=== PATIENT | male | born 1975 | race Caucasian/White ===

== ENCOUNTER 2017-04-07 22:21 | Emergency (ER) | payer OTHER ==
[~2017-04-07] VITALS: Ht 182.9 cm; Wt 95.0 kg
[2017-04-07] MEDS ORDERED: HALOPERIDOL LACTATE 5 MG/ML AMP ONE (22:29)
[2017-04-07 22:35] VITALS: BP 172/99; PULSE 121; RESP 18; TEMP 97.4; O2SAT 99
[2017-04-07] MEDS ORDERED: LORazepam 2 MG/ML VIAL ONE (22:39)
[2017-04-07] MEDS ORDERED: HALOPERIDOL LACTATE 5 MG/ML AMP IM ONE (22:45)
[2017-04-07] MEDS ORDERED: LORazepam 2 MG/ML VIAL IM ONE (22:45)
--- NOTE | 2017-04-07 23:11 | PD ---
HPI Chief Complaint: Alcohol/Drug Intoxication Time Seen by Provider: 22:38 Travel History International Travel<30 days: No Contact w/Intl Traveler<30days: No Traveled to known affect area: No History of Present Illness HPI So 41-year-old man who presents to the emergency department brought in by law enforcement for being intoxicated. The reportedly initially took him to the retirement with the retirement wouldn't take him because he was "too drunk". Patient at this point is to screaming obscenities stating ischemic kill everybody, stating that he hates law enforcement officer, and trying to spit on people. History Past Medical History Narrative Medical Unknown Medical History: Unable to Obtain Tetanus Vaccination: Unknown Past Surgical History Surgical History: Unable to Obtain Social History Alcohol Use: Yes Tobacco Use: No Allergies-Medications (Allergen,Severity, Reaction): Coded Allergies: UNOBTAINABLE (Unverified , 04/07/17) pt intoxicated refusing to answer questions Review of Systems Except as stated in HPI: all other systems reviewed are Neg Physical Exam Narrative GENERAL: A 41-year-old man, in handcuffs, yelling obscenities and spitting on people. SKIN: Focused skin assessment warm/dry. HEAD: Normocephalic. Lungs any obvious evidence of trauma.. EYES: Pupils equal and round. No scleral icterus. No injection or drainage. ENT: No nasal bleeding or discharge. Mucous membranes pink and moist. NECK: Moves neck freely. CARDIOVASCULAR: Regular rate and rhythm. No murmur appreciated. RESPIRATORY: No accessory muscle use. Clear to auscultation. Breath sounds equal bilaterally. GASTROINTESTINAL: Abdomen soft, non-tender, nondistended. Hepatic and splenic margins not palpable. MUSCULOSKELETAL: No obvious deformities. No edema. NEUROLOGICAL: Awake and alert. No obvious cranial nerve deficits. Motor grossly within normal limits. Normal speech. PSYCHIATRIC: Agitated, non-directable. Data Data Last Documented VS Vital Signs Date Time Temp Pulse Resp B/P Pulse Ox O2 Delivery O2 Flow Rate FiO2 04/07/17 22:35 97.4 121 18 172/99 99 Orders Haloperidol Inj (Haldol Inj) (04/07/17 22:29) Haloperidol Inj (Haldol Inj) (04/07/17 22:45) Lorazepam Inj (Ativan Inj) (04/07/17 22:45) Lorazepam Inj (Ativan Inj) (04/07/17 22:39) Restraints Violent (04/07/17 22:55) MDM Medical Decision Making Medical Screen Exam Complete: Yes Emergency Medical Condition: Yes Differential Diagnosis Intoxication, agitated delirium, occult injury, other Narrative Course Medical decision making Is a 41-year-old man presents emergent department aggressive intoxicated. He was restrained and sedated without issue. He'll sleep it off we'll reassess him. There is no evidence of trauma. Possibly some other coingestions. Diagnosis Primary Impression: Alcohol intoxication Referrals: [facility] Additional Instructions: Do not drink alcohol to excess. Do not take illicit drugs. Med/Other Pt SpecificInfo: No Change to Meds Disposition: 01 DISCHARGE HOME Condition: Stable Edgard Oconnell MD Apr 07, 2017 23:11
[2017-04-08 03:30] VITALS: BP 103/65; PULSE 96; RESP 16; O2SAT 97
[2017-04-08 08:55] VITALS: BP 110/68
== END 2017-04-08 08:58 | disposition home or self-care (01) ==
LOC: NEPE 22:21
DX: F10.129 Alcohol abuse with intoxication, unspecified (principal)
CPT/HCPCS: 96372; 99285; J1630; J2060

== ENCOUNTER 2017-04-13 15:43 | Emergency (ER) | payer OTHER ==
[~2017-04-13] VITALS: Ht 185.4 cm; Wt 80.0 kg
[2017-04-13] MEDS ORDERED: SODIUM CHLOR 0.9% 1000 ML INJ 1,000 ML IV ONE (16:00)
[2017-04-13] MEDS ORDERED: HALOPERIDOL LACTATE 5 MG/ML AMP IM ONE (16:00)
[2017-04-13] MEDS ORDERED: LORazepam 2 MG/ML VIAL IM ONE (16:00)
[2017-04-13 16:11] VITALS: BP 114/67; PULSE 121; RESP 24; TEMP 98.4; O2SAT 97
--- NOTE | 2017-04-13 16:19 | PD ---
HPI Chief Complaint: Psychiatric Symptoms Time Seen by Provider: 15:53 Travel History International Travel<30 days: No Contact w/Intl Traveler<30days: No Traveled to known affect area: No History of Present Illness HPI 41-year-old male presents emergency department under Bishop act. Per police patient was aggressive, agitated. Stating "I'm Tu Arreola", "I'm God". Patient admits to feeling depressed, suicidal. States "I wish I could just take a gun and blow my head off". He was found with obvious second-degree sunburns with blisters. Patient is aggressive with police, stating. He was placed in restraints prior to arrival. Patient denies any medical complaints, stating repetitively that he wants to end his life. [facility] Past Medical History Medical History: Unable to Obtain ?: Not Past Surgical History Surgical History: Unable to Obtain Social History Alcohol Use: Yes Tobacco Use: No Substance Use: No Allergies-Medications (Allergen,Severity, Reaction): Coded Allergies: UNOBTAINABLE (Unverified , 04/07/17) pt intoxicated refusing to answer questions Review of Systems ROS Limitations: Uncooperative, Combative, Poor Historian Physical Exam Exam Limitations: Poor Historian, Uncooperative, Combative Narrative GENERAL: Middle-aged male agitated, combative SKIN: First and Second degree sun herrera to the majority of the torso and upper extremities HEAD: Atraumatic. Normocephalic. EYES: Pupils equal and round. 4 mm. No scleral icterus. No injection or drainage. ENT: No nasal bleeding or discharge. Mucous membranes pink and moist. NECK: Supple CARDIOVASCULAR: Tachycardic with heart rate in the 120s, regular rhythm. No murmur appreciated. RESPIRATORY: No accessory muscle use. Clear to auscultation. Breath sounds equal bilaterally. GASTROINTESTINAL: Abdomen soft, non-tender, nondistended. MUSCULOSKELETAL: Moves all 4 extremities strong NEUROLOGICAL: Awake and alert to place, time. Patient is able to tell me his name but he also states that he is "Raymond Arreola", "God". Agitated, combative, moves all extremities strong. PSYCHIATRIC: Agitated, combative, delusional and grandiose. States that he is "Raymond Marinon" and "God". States he feels depressed and suicidal, mentions that he wants to shoot himself in the head with firearm. Data Data Last Documented VS Vital Signs Date Time Temp Pulse Resp B/P Pulse Ox O2 Delivery O2 Flow Rate FiO2 04/13/17 16:12 118 04/13/17 16:11 98.4 24 114/67 97 Room Air Orders Complete Blood Count With Diff (04/13/17 15:53) Comprehensive Metabolic Panel (04/13/17 15:53) Electrocardiogram (04/13/17 15:53) Iv Access Insert/Monitor (04/13/17 15:53) Psych Screen (04/13/17 15:53) Haloperidol Inj (Haldol Inj) (04/13/17 16:00) Lorazepam Inj (Ativan Inj) (04/13/17 16:00) Drug Screen, Random Urine (04/13/17 15:53) Alcohol (Ethanol) (04/13/17 15:53) Creatine Kinase (Cpk) (04/13/17 15:53) Sodium Chlor 0.9% 1000 Ml Inj (Ns 1000 M (04/13/17 16:00) MDM Medical Decision Making Medical Screen Exam Complete: Yes Emergency Medical Condition: Yes Medical Record Reviewed: Yes Differential Diagnosis 41-year-old male here as a Bishop act. Patient agitated, combative, grandiose, delusional and suicidal with plan. Differential includes psychosis, schizophrenia, bipolar disorder, drug-induced mood disorder, drug-induced psychosis, sunburn, dehydration, electrolyte abnormality. Narrative Course Patient placed on monitor. For his safety and ours patient was sedated with 5 mg Haldol, 2 mg Ativan IM. IV established. Blood obtained. Given 1 L normal saline bolus. CBC, CMP, CPK, blood alcohol level, urine drug screen and EKG were ordered. These are pending at the time this dictation. Patient signed out to oncoming provider waiting results of same. If medically cleared, will need psychiatric evaluation. Margarita Ferguson MD Apr 13, 2017 16:19
[2017-04-13 16:58] LABS: AUTOMATED NEUTROPHIL # 5.3 TH/MM3 (1.8-7.7); BASOPHIL # 0.1 TH/MM3 (0-0.2); EOSINOPHIL # 0.2 TH/MM3 (0-0.4); HEMATOCRIT 44.9 % (39.0-51.0); HEMO FLAGS DIFF FINAL; LYMPH % 19.8 % (9.0-44.0); LYMPHOCYTE # 1.6 TH/MM3 (1.0-4.8); MEAN CELL VOLUME 93.6 FL (80.0-100.0); MEAN CORPUSCULAR HEMOGLOBIN 32.8 PG (27.0-34.0); MEAN CORPUSCULAR HGB CONC 35.1 % (32.0-36.0); MONO % 9.5 % (0.0-8.0); NEUT % 67.7 % (16.0-70.0); PLATELET COUNT 180 TH/MM3 (150-450); RED CELL DISTRIBUTION WIDTH 14.3 % (11.6-17.2); WHITE BLOOD COUNT 7.9 TH/MM3 (4.0-11.0)
[2017-04-13 17:22] LABS: ALKALINE PHOSPHATASE 69 U/L (45-117); ALT (GPT) 47 U/L (12-78); ANION GAP 14 MEQ/L (5-15); AST (GOT) 63 U/L (15-37); BICARBONATE 20.8 MEQ/L (21.0-32.0); BLOOD UREA NITROGEN 7 MG/DL (7-18); CHLORIDE 106 MEQ/L (98-107); CREATINE KINASE 302 U/L (39-308); GLOMERULAR FILTRATION RATE 80 ML/MIN (>89); SODIUM (NA) 141 MEQ/L (136-145); TOTAL BILIRUBIN ADULT 0.6 MG/DL (0.2-1.0)
[2017-04-13 17:23] LABS: POTASSIUM 3.9 MEQ/L (3.5-5.1)
[2017-04-13 17:40] LABS: AMPHETAMINE, URINE NEG (NEG); BARBITURATES, URINE NEG (NEG); COCAINE, URINE NEG (NEG)
[2017-04-13 18:10] VITALS: BP 98/60; PULSE 101; RESP 18; O2SAT 100
--- NOTE | 2017-04-13 18:17 | PD ---
Data Data Last Documented VS Vital Signs Date Time Temp Pulse Resp B/P Pulse Ox O2 Delivery O2 Flow Rate FiO2 04/13/17 18:10 101 18 98/60 100 Room Air 04/13/17 16:11 98.4 Orders Complete Blood Count With Diff (04/13/17 15:53) Comprehensive Metabolic Panel (04/13/17 15:53) Electrocardiogram (04/13/17 15:53) Iv Access Insert/Monitor (04/13/17 15:53) Psych Screen (04/13/17 15:53) Haloperidol Inj (Haldol Inj) (04/13/17 16:00) Lorazepam Inj (Ativan Inj) (04/13/17 16:00) Drug Screen, Random Urine (04/13/17 15:53) Alcohol (Ethanol) (04/13/17 15:53) Creatine Kinase (Cpk) (04/13/17 15:53) Sodium Chlor 0.9% 1000 Ml Inj (Ns 1000 M (04/13/17 16:00) Labs Laboratory Tests Test 04/13/17 04/13/17 04/13/17 16:05 16:34 17:06 Sodium Level 141 MEQ/L Potassium Level 3.9 MEQ/L Chloride Level 106 MEQ/L Carbon Dioxide Level 20.8 MEQ/L Anion Gap 14 MEQ/L Blood Urea Nitrogen 7 MG/DL Creatinine 1.03 MG/DL Estimat Glomerular Filtration 80 ML/MIN Rate Random Glucose 77 MG/DL Calcium Level 8.7 MG/DL Total Bilirubin 0.6 MG/DL Aspartate Amino Transf 63 U/L (AST/SGOT) Alanine Aminotransferase 47 U/L (ALT/SGPT) Alkaline Phosphatase 69 U/L Total Creatine Kinase 302 U/L Total Protein 7.8 GM/DL Albumin 3.5 GM/DL Ethyl Alcohol Level 212 MG/DL White Blood Count 7.9 TH/MM3 Red Blood Count 4.80 MIL/MM3 Hemoglobin 15.7 GM/DL Hematocrit 44.9 % Mean Corpuscular Volume 93.6 FL Mean Corpuscular Hemoglobin 32.8 PG Mean Corpuscular Hemoglobin 35.1 % Concent Red Cell Distribution Width 14.3 % Platelet Count 180 TH/MM3 Mean Platelet Volume 9.3 FL Neutrophils (%) (Auto) 67.7 % Lymphocytes (%) (Auto) 19.8 % Monocytes (%) (Auto) 9.5 % Eosinophils (%) (Auto) 2.0 % Basophils (%) (Auto) 1.0 % Neutrophils # (Auto) 5.3 TH/MM3 Lymphocytes # (Auto) 1.6 TH/MM3 Monocytes # (Auto) 0.7 TH/MM3 Eosinophils # (Auto) 0.2 TH/MM3 Basophils # (Auto) 0.1 TH/MM3 CBC Comment DIFF FINAL Differential Comment Urine Opiates Screen NEG Urine Barbiturates Screen NEG Urine Amphetamines Screen NEG Urine Benzodiazepines Screen POS Urine Cocaine Screen NEG Urine Cannabinoids Screen NEG MDM Supervised Visit with DESTINI: No Narrative Course The patient was initially evaluated by the previous provider and signed out to me at the beginning of my shift pending labs for medical clearance for psychiatric evaluation. See her note for further details. CBC and CMP are unremarkable. Urine drug screen is positive for benzodiazepines. Alcohol level is 212. The patient required physical and chemical sedation by the previous provider. On my assessment he is still in 4 point restraints. He is easily arousable and tells me he would like to leave. I informed him that he would need to speak to a psychiatrist first. He does have first-degree herrera apparently from sunburn to his face/chest/upper extremities. There is some peeling of the skin, however this does not appear to be second-degree herrera or blistering. The patient is medically cleared for psychiatric evaluation and disposition by them. Diagnosis Primary Impression: Alcohol-induced mood disorder Carter Fleming MD Apr 13, 2017 18:17
[2017-04-13 18:45] VITALS: BP 106/76; PULSE 83; RESP 18; O2SAT 98
[2017-04-13] MEDS ORDERED: BUSP5TAB PO (18:51)
[2017-04-13] MEDS ORDERED: SERO25TA PO (18:51)
[2017-04-13] MEDS ORDERED: GABA100C4 PO (18:51)
[2017-04-13] MEDS ORDERED: ONDANSETRON ODT 4 MG TAB PO PRN (21:30)
[2017-04-13] MEDS ORDERED: LORazepam 2 MG/ML VIAL IV PUSH PRN ×4 (21:30)
[2017-04-13] MEDS ORDERED: LORazepam 2 MG TAB PO PRN (21:30)
[2017-04-13] MEDS ORDERED: LORazepam 1 MG TAB PO PRN (21:30)
[2017-04-13] MEDS ORDERED: FLUMAZENIL 0.5 MG/5 ML VIAL IV PUSH PRN (21:30)
--- NOTE | 2017-04-13 21:33 | EKG ---
Date Performed: 04/13/2017 Time Performed: 16:44:21 PTAGE: 41 years EKG: SINUS TACHYCARDIA BORDERLINE RIGHT AXIS DEVIATION ABNORMAL RHYTHM ECG NO PREVIOUS TRACING DOCTOR: Chandler Stone Interpretating Date/Time 04/13/2017 21:31:46
[2017-04-13 22:41] VITALS: BP 133/60; PULSE 107; RESP 16
[2017-04-14 02:14] VITALS: BP 150/66; PULSE 104; RESP 20; TEMP 98.8; O2SAT 96
[2017-04-14 06:16] VITALS: BP 103/58; PULSE 96; RESP 20; TEMP 98.8; O2SAT 98
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
[2017-04-14 10:44] VITALS: BP 103/58; TEMP 97.4
== END 2017-04-14 10:00 | disposition home or self-care (01) ==
LOC: NEPD 15:43 → NEPJ 04-14 10:00
DX: F10.94 Alcohol use, unspecified with alcohol-induced mood disorder (principal); R00.0 Tachycardia, unspecified; R94.31 Abnormal electrocardiogram [ECG] [EKG]; Z79.899 Other long term (current) drug therapy
CPT/HCPCS: 80053; 80307; 82550; 85025; 93005; 96372; 99285; J1630; J2060; J7030